=== PATIENT | male | born 1980 | race Caucasian/White ===

== ENCOUNTER 2024-04-30 05:28 | Emergency (ER) | payer MEDICARE, SELFPAY ==
[2024-04-30 05:43] VITALS: BP 134/88; PULSE 77; RESP 18; TEMP 36.8; O2SAT 96; BMI 27.9
--- NOTE | 2024-04-30 06:26 | PC.NURSE ---
patient walking by this RN and Roshni reporting he does have his medication, that he came to the ED for a dose of d/t his family member being admitted upstairs and no able to go home to get medication. Patient stated that was all he needed and therefore he did not need to stay. Patient then ambulated independently to exit
--- NOTE | 2024-04-30 06:44 | ED.GENADULT ---
HPI - General Adult General Chief complaint: General Medical Stated complaint: ran out of psych meds Time Seen by Provider: 04/30/24 06:31 Related Data Allergies Allergy/AdvReac Type Severity Reaction Status Date / Time No Known Allergies Allergy Verified 04/30/24 05:48 PMFSH Social History Social History Advance Directives: No Advance Directives Information Provided: Yes Physical Exam ED Vital Signs: Vital Signs - 24 hr 04/30/24 05:43 Temperature 98.2 F Pulse Rate 77 Respiratory Rate 18 Blood Pressure 134/88 Pulse Oximetry 96 Oxygen Delivery Method Room Air BMI result Body Mass Index 27.9 Discharge Plan Discharge Clinical Impression: Medication refill Patient Disposition: Left Without Being Seen Interventions: LWBS Worksheet Last Done: 04/30/24 06:37 Discharge Date/Time: 04/30/24 06:38
== END 2024-04-30 06:38 | disposition left against medical advice (07) ==
PROVIDERS: Emergency Provider Internal Medicine
DX: Z76.0 Encounter for issue of repeat prescription (principal); Z53.21 Procedure and treatment not carried out due to patient leaving prior to being seen by health care provider
CPT/HCPCS: 99281